=== PATIENT | male | born 1945 | race Two or more races ===

== ENCOUNTER 2019-03-08 13:36 | Emergency (ER) | payer OTHER ==
[~2019-03-08] VITALS: Ht 180.3 cm; Wt 79.4 kg
--- NOTE | 2019-03-08 14:15 | NUR ---
PT AAOX4. AMBULATORY. C/O COUGH, CONGESTION, AND FEVER FOR THE PAST 3 DAYS. PT AFEBRILE UPON ASSESSMENT. PLACED ON MONIOTR AND PULS OX. AWAITING MD ORDERS.
--- NOTE | 2019-03-08 14:56 | NUR ---
XRAY AT BEDSIDE
[2019-03-08 16:02] VITALS: BP 110/78
--- NOTE | 2019-03-08 16:02 | NUR ---
Patient discharged to home in stable condition. Written and verbal after care instructions given. Patient verbalizes understanding of instruction and RX. PT ambulatory with a steady gait.
[2019-03-08] MEDS ORDERED: IBUPROFEN 600 MG TABLET PO ONE (22:05)
== END 2019-03-08 16:07 | disposition home or self-care (01) ==
LOC: ER 13:36
DX: R05 Cough (principal); I11.0 Hypertensive heart disease with heart failure; Z60.2 Problems related to living alone
CPT/HCPCS: 71045-TC